=== PATIENT | male | born 1955 | race Caucasian/White ===

== ENCOUNTER 2019-02-15 17:14 | Emergency (ER) | payer OTHER ==
[2019-02-15 17:47] VITALS: RESP 16; TEMP 97.3
[2019-02-15] MEDS ORDERED: LIDOCAINE 1% INJ 10MG/ML (20 ML MDV) SQ STA (17:55)
--- NOTE | 2019-02-15 18:27 | XR ---
EXAMINATION TYPE: XR hand complete LT DATE OF EXAM: 02/15/2019 COMPARISON: NONE HISTORY: Laceration TECHNIQUE: 3 views. I see no fracture nor dislocation. Joint spaces are fairly normal. There is spurring at the DIP join t of the little finger. There is soft tissue air on the dorsum of the hand and wrist. There is no sign of a foreign body. IMPRESSION: Soft tissue air consistent with laceration. No fracture seen.
[2019-02-15] MEDS ORDERED: cefTRIAXone IN SWFI 1,000 MG/10 ML SYRINGE IVP STA (18:35)
[2019-02-15] MEDS ORDERED: cefTRIAXone 1,000 MG VIAL (IM USE) IM STA (19:03)
--- NOTE | 2019-02-15 19:26 | ED ---
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 Patient reports that he was using a power plant technician with only water in it, the water was from the [facility]. Patient additionally did not have gloves on passed his hand through the stream creating a laceration of his dorsal aspect of his hand. Patient has full active range of motion of hand. Patient does have a approximately 4 cm laceration. Patient denies any other complaints. Sensation intact. Tetanus updated 3 years ago. Systemic: Pt denies fatigue, myalgia, fever/chills, rash. Pt denies weakness, night sweats, weight loss. Neuro: Pt denies headache, visual disturbances, syncope or pre-syncope. HEENT: Pt denies ocular discharge or irritation, otalgia, rhinorrhea, pharyngitis or notable lymphadenopathy. Cardiopulmonary: Pt denies chest pain, SOB, heart palpitations, dyspnea on exertion. Abdominal/GI: Pt denies abdominal pain, n/v/d. : Pt denies dysuria, burning w/ urination, frequency/urgency. Denies new onset urinary or bowel incontinence. MSK: Pt denies myalgia, loss of strength or function in extremities. Neuro: Pt denies new onset weakness, paresthesias. - Related Data Previous Rx's Medication Instructions Recorded Cephalexin [Keflex] 500 mg PO Q12HR 10 Days cap 02/15/19 Sulfamethox-Tmp 800-160Mg [Bactrim 1 tab PO Q12HR #20 tab 02/15/19 DS 800-160 mg] Allergies Allergy/AdvReac Type Severity Reaction Status Date / Time No Known Allergies Allergy Verified 02/15/19 18:19 Review of Systems ROS Statement: Those systems with pertinent positive or pertinent negative responses have been documented in the HPI. ROS Other: All systems not noted in ROS Statement are negative. Past Medical History Past Medical History: No Reported History History of Any Multi-Drug Resistant Organisms: None Reported Past Surgical History: Hernia Repair, Orthopedic Surgery Additional Past Surgical History / Comment(s): Eye surgery Past Psychological History: No Psychological Hx Reported Smoking Status: Never smoker Past Alcohol Use History: Occasional Past Drug Use History: None Reported General Exam - General Exam Comments Initial Comments: Constitutional: NAD, AOX3, Pt has pleasant affect. HEENT: NC/AT, trachea midline, neck supple, no lymphadenopathy. Posterior pharynx non erythematous, without exudates. External ears appear normal, without discharge. Mucous membranes moist. Eyes PERRLA, EOM intact. There is no scleral icterus. No pallor noted. Cardiopulmonary: RRR, no murmurs, rubs or gallops, no JVD noted. Lungs CTAB in anterior and posterior borrego. No peripheral edema. Abdominal exam: Abdomen soft and non-distended. Abdomen non-tender to palpation in all 4 quadrants. Bowel sounds active in LLQ. No hepatosplenomegaly. No ecchymosis Neuro: CN II-XII grossly intact. No nuchal rigidity. MSK: 4 cm laceration noted dorsal aspect of left hand. Small amount of tendon sheath noted, no tendinous injury. Full active range of motion of all digits of hand. Sensation intact. Capillary refill less than 2 seconds. Wound vigorously irrigated with 2 L normal saline. Wound approximated with 4 simple interrupted sutures. No posterior calf tenderness bilaterally, homans sign negative bilaterally. Posterior tibialis and radial pulse +2 bilaterally. Sensation intact in upper and lower extremities. Full active ROM in upper and lower extremities, 5/5 stregnth. Course Vital Signs 02/15/19 17:39 Temperature 97.3 F L Pulse Rate 89 Respiratory 16 Rate Blood Pressure 137/75 O2 Sat by Pulse 97 Oximetry Procedures - Laceration Laceration #1 Indication: laceration Site: other (left hand) Size (cm): 4 Description: irregular Depth: simple, single layer Anesthetic Used: lidocaine 1% Anesthesia Technique: local infiltration Amount (mls): 4 Pre-repair: wound explored, irrigated extensively (2L NS), deep structures intact (extensor tendon noted, no injury ) Type of Sutures: nylon Size of Sutures: 5-0 Number of Sutures: 4 Technique: simple, interrupted Patient Tolerated Procedure: well, no complications Medical Decision Making - Medical Decision Making 63-year-old male patient with no pertinent past she appears to ED 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 Patient reports that he was using a power plant technician with only water in it, the water was from the [facility]. Patient additionally did not have gloves on passed his hand through the stream creating a laceration of his dorsal aspect of his hand. Patient has full active range of motion of hand. Patient does have a approximately 4 cm laceration. Patient denies any other complaints. Sensation intact. Tetanus updated 3 years ago. Pt VSS, afebrile. Plain film of left hand displayed laceration, no acute osseous process. Physical exam displayed: 4 cm laceration noted dorsal aspect of left hand. Small amount of tendon sheath noted, no tendinous injury. Full active range of motion of all digits of hand. Sensation intact. Capillary refill less than 2 seconds. Wound vigorously irr igated with 2 L normal saline. Wound approximated with 4 simple interrupted sutures. Patient administered 1 g Rocephin ED. Patient discharged with Keflex and Bactrim. Patient will follow-up with orthopedic surgeon tomorrow. Patient return to ER if condition worsens in any way. Case discussed with Dr. Hernadez. Disposition Clinical Impression: Laceration Disposition: HOME SELF-CARE Condition: Stable Instructions (If sedation given, give patient instructions): Laceration (ED) Additional Instructions: Patient to adhere to previously discussed treatment plan and will take medication(s) as directed. Patient to follow up with PCP in 1-2 days. Patient to return to ED if symptoms do not improve. Follow-up with orthopedic consult tomorrow. Take medication as directed. Please return for suture removal: Hand: 7-10 days Face: 5 days Chest/abdomen: 12-14 days Extremities: 7-10 days Scalp: 7 days Eyebrow: 5-7 days Foot/sole: 12-14 days Please monitor for signs and symptoms of infection including: redness, warmth, drainage, discharge. Please return to ED if these signs or symptoms occur, new signs or symptoms develop or if condition worsens in anyway. Prescriptions: Sulfamethox-Tmp 800-160Mg [Bactrim DS 800-160 mg] 1 tab PO Q12HR #20 tab Cephalexin [Keflex] 500 mg PO Q12HR 10 Days cap Is patient prescribed a controlled substance at d/c from ED?: No Referrals: Tara Macedo MD [Primary Care Provider] - 1-2 days Todd Shelton DO [Medical Doctor] - 1-2 days
[2019-02-15 19:40] VITALS: BP 133/76; PULSE 87
[2019-02-15] MEDS ORDERED: cefTRIAXone 1,000 MG VIAL (IM USE) IM SCH (21:00)
== END 2019-02-15 19:40 | disposition home or self-care (01) ==
LOC: EC 17:14
DX: S61.412A Laceration without foreign body of left hand, initial encounter (principal); Z53.8 Procedure and treatment not carried out for other reasons; W29.2XXA Contact with other powered household machinery, initial encounter; Y93.89 Activity, other specified; Y92.009 Unspecified place in unspecified non-institutional (private) residence as the place of occurrence of the external cause
CPT/HCPCS: 73130; 99283; 12002; 96372; J2001; J0696

== ENCOUNTER → 2021-01-16 | Outpatient (CLI) | payer MEDICARE, OTHER ==
--- NOTE | 2021-01-16 12:07 | US ---
EXAMINATION TYPE: US liver DATE OF EXAM: 01/16/2021 COMPARISON: NONE CLINICAL HISTORY: 65-year-old male E80.7 Elevated bilirubin. TECHNIQUE: Multiple sonographic images of the right upper quadrant are obtained. FINDINGS: EXAM MEASUREMENTS: Liver Length: 14.6 cm Gallbladder Wall: 0.2 cm CBD: 0.4 cm Right Kidney: 12.2 x 5.2 x 3.6 cm Pancreas: Tail obscured by overlying bowel gas. Visualized portions show no gross abnormality. Liver: wnl Gallbladder: wnl Evidence for sonographic Burnett's sign: neg CBD: wnl Right Kidney: Small extrarenal pelvis. An upper pole cyst measures 4.3 cm. Smaller cysts are present, one in the midpole measuring 1 cm. No hydronephrosis. IMPRESSION: No gallstones or biliary ductal dilatation. A couple right renal cysts, largest at the upper pole bijan suring 4.3 cm.
== END | disposition home or self-care (01) ==
LOC: RADUSWWP 08:16
PROVIDERS: ATTEND Family Medicine
DX: N28.1 Cyst of kidney, acquired (principal)
CPT/HCPCS: 76705

== ENCOUNTER → 2021-01-19 | Outpatient (CLI) | payer MEDICARE ==
--- NOTE | 2021-01-19 18:07 | ECHOF ---
Referral Reason:Z82.49 Family history of CAD, R94.31 Abn EKG MEASUREMENTS -------- HEIGHT: 172.7 cm WEIGHT: 68.0 kg BP: 121/76 IVSd: 1.0 cm (0.6 - 1.1) LVIDd: 3.5 cm (3.9 - 5.3) LVPWd: 0.9 cm (0.6 - 1.1) EDV(Teich): 51 ml IVSs: 1.4 cm LVIDs: 2.2 cm LVPWs: 1.5 cm %IVS Thck: 39 % ESV(Teich): 16 ml EF(Teich): 70 % %FS: 38 % SV(Teich): 36 ml LA Diam: 2.7 cm (2.7 - 3.8) RVIDd: 2.9 cm (< 3.3) Ao Diam: 3.3 cm (2.0 - 3.7) AV Cusp: 1.8 cm (1.5 - 2.6) EPSS: 0.7 cm MV E Crow: 0.85 m/s MV DecT: 171 ms MV Dec Luce: 5.0 m/s MV A Crow: 1.07 m/s MV E/A Ratio: 0.79 MV PHT: 50 ms AV Vmax: 1.24 m/s AV maxP.16 mmHg TR Vmax: 2.09 m/s TR maxP.55 mmHg RAP: 5.00 mmHg RVSP: 22.55 mmHg MV EF SLOPE: 91.00 mm/s (70 - 150) MV EXCURSION: 19.44 mm (> 18.000) FINDINGS -------- Sinus rhythm. This was a technically good study. The left ventricular size is normal. Left ventricular wall thickness is normal. Overall left vent ricular systolic function is normal with, an EF between 60 - 65 %. The right ventricle is normal in size. Normal LA size by volume 22+/-6 ml/m2. The right atrium is normal in size. Interatrial and interventricular septum intact. The aortic valve is trileaflet and appears structurally normal. Mild mitral regurgitation is present. Mild tricuspid regurgitation present. Right ventricular systolic pressure is normal at < 35 mmHg. Trace/mild (physiologic) pulmonic regurgitation. The aortic root size is normal. Normal inferior vena cava with normal inspiratory collapse consistent with estimated right atrial pre ssure of 5 mmHg. There is no pericardial effusion. CONCLUSIONS -------- 1. The left ventricular size is normal. 2. Left ventricular wall thickness is normal. 3. Overall left ventricular systolic function is normal with, an EF between 60 - 65 %. 4. The aortic valve is trileaflet and appears structurally normal. 5. Mild mitral regurgitation is present. 6. Mild tricuspid regurgitation present. 7. Trace/mild (physiologic) pulmonic regurgitation. 8. There is no pericardial effusion. METHODS SPECIALIST: Roula Villalobos RDCS
--- NOTE | 2021-01-20 11:05 | ECHOS ---
Stress Test Results/Findings: Exam Performed: stress echo exercise Exam Date: 01/19/21 Reason for Exam: FH OF CAD Height: 5 ft 8 in Weight: 68 kg Protocol: STRESS ECHO Stage: 4 Duration of Exercise: 12:00 Resting Heart Rate: 82 Resting Blood Pressure: 121/76 Maximum Achieved Heart Rate: 161 Maximum Achieved Blood Pressure: 194/62 85% PMHR: 132 100% PMHR: 155 METS: 12.1 Technologist Comment: Stress Test Results/Findings: Baseline heart rate 82 beats a minute, Baseline blood pressure 120 176. His mercury Patient exercised on a [place] protocol for 12 minutes He achieved 100% of his predicted heart rate Peak heart rate about 61 beats a minute Peak blood pressure 194/62 mmHg There was no ECG evidence for ischemia No arrhythmias noted Baseline 2-D echo images showed normal LV size and systolic function At peak exercise, there was excellent augmentation of overall and contractility without development of any wall motion abnormalities @Recovery regional and global LV systolic function with normal Impression Excellent exercise capacity No ECG or echocardiographic evidence for ischemia Additional CC's: Tara CRUZ
== END | disposition home or self-care (01) ==
LOC: RADNMMAIN 09:07
PROVIDERS: ATTEND Family Medicine
DX: R94.31 Abnormal electrocardiogram [ECG] [EKG] (principal); Z82.49 Family history of ischemic heart disease and other diseases of the circulatory system
CPT/HCPCS: 93306; 93351